=== PATIENT | female | born 1980 | race Caucasian/White ===

== ENCOUNTER → 2022-10-08 | Outpatient (CLI) | payer SELFPAY ==
[~2022-10-08] MED LIST: ALDOMET 250MG250 MG PO; IBIFON 600600 MG PO; NKDA; PERCOCET 325 MG1 TA2; SENOKOT S 50 MG1 TAB PO
== END ==
LOC: MC.RAD 08:13
DX: N63.20 Unspecified lump in the left breast, unspecified quadrant (principal)